=== PATIENT | female | born 1995 | race African-American/Black ===

== ENCOUNTER 2016-12-23 08:40 | Emergency (ER) | payer MEDICAID ==
[~2016-12-23] VITALS: Ht 172.7 cm; Wt 108.0 kg
[2016-12-23 09:08] VITALS: BP 102/64
[2016-12-23 09:35] LABS: Urine Bilirubin Negative (Negative); Urine Blood Negative /uL (Negative); Urine Color Yellow (Yellow); Urine Glucose Normal (Normal); Urine Mucus FEW (None Seen); Urine RBC <1 /hpf (0 - 4); Urine Squamous Epithelial Cell FEW /hpf (<5); Urine Urobilinogen Normal (Negative); Urine pH 8.5 (5.0-8.0)
[2016-12-23 09:38] LABS: Urine Ketone 2+ (Negative); Urine Nitrite POSITIVE (Negative)
[2016-12-23 10:52] LABS: CONDITION Y; Hematocrit 42.2 % (36.0-46.0); Hemoglobin 14.1 g/dL (12.2-16.2); Mean Corpuscular Hemoglobin 29.6 pg (28.0-32.0); Mean Corpuscular Hgb Conc. 33.5 g/dL (32.0-36.0); Mean Corpuscular Volume 88.6 fL (80.0-100.0); Mean Platelet Volume 10.4 fL (7.4-10.4); Platelet Count (auto) 303 10^3/uL (140-450); SUSPECT SEE PRINTOUT; White Blood Cell 13.7 10^3/uL (4.4-10.8)
[2016-12-23 11:12] LABS: BUN/Creatinine Ratio 14.6; Bilirubin, Total 1.1 mg/dL (0.2-1.0); Calcium 9.2 mg/dL (8.5-10.1); Potassium 3.7 mmol/L (3.5-5.1); Total Protein 8.3 g/dL (6.4-8.2)
[2016-12-23 11:24] LABS: Metamyelocytes % 0; Myelocytes % 0; Promyelocytes % 0; Reactive Lymphocytes 0
[2016-12-23 11:39] LABS: Platelet Estimate Adequate; Stomatocytes Moderate
[2016-12-23 11:40] LABS: Ovalocytes FEW
== END 2016-12-23 12:40 | disposition left against medical advice (07) ==
LOC: ER 08:43
DX: L50.9 Urticaria, unspecified (principal); Z53.21 Procedure and treatment not carried out due to patient leaving prior to being seen by health care provider
CPT/HCPCS: 36415; 80053; 81001; 85007; 85027

== ENCOUNTER 2017-02-23 15:03 | Emergency (ER) | payer MEDICAID ==
[~2017-02-23] VITALS: Ht 172.7 cm; Wt 108.9 kg
[2017-02-23 15:27] VITALS: BP 128/76
== END 2017-02-23 17:06 | disposition home or self-care (01) ==
LOC: ER 15:06
DX: Z76.1 Encounter for health supervision and care of foundling (principal); Z11.1 Encounter for screening for respiratory tuberculosis
CPT/HCPCS: 71020